=== PATIENT | male | born 1955 | race Caucasian/White ===

== ENCOUNTER 2021-04-10 14:04 | Inpatient (IN) | payer MEDICARE, MEDICAID ==
[~2021-04-10] VITALS: Ht 182.9 cm; Wt 95.4 kg
[2021-04-10] MEDS ORDERED: IV NORMAL SALINE 1,000ML 1,000 ML IV ONE (14:30)
[2021-04-10] MEDS ORDERED: ONDANSETRON PF 4 MG/2 ML VIAL. IVP ONE ×2 (14:30→15:45)
--- NOTE | 2021-04-10 14:47 | EKG ---
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
--- NOTE | 2021-04-10 14:51 | RAD ---
INDICATION: Reason: CP / Spl. Instructions: / History: COMPARISON: None. FINDINGS: Frontal views of chest obtained. AICD is identified with 3 leads. Cardiac mediastinal silhouette is mildly prominent. No definite focal airspace consolidation. IMPRESSION: * No focal airspace consolidation. Electronically signed by: Giles Dill MD (04/10/2021 2:48 PM) [id number]
[2021-04-10 14:53] LABS: CALCIUM 8.6 mg/dL (8.5-10.1); GFR 74.5; POTASSIUM 3.8 mmol/L (3.5-5.1)
[2021-04-10 14:55] LABS: BASO % 1 % (0-3); EOS # 0.1 x10^3/uL (0.0-0.7); EOS % 2 % (0-3); HEMATOCRIT 47.3 % (39.0-53.0); HEMOGLOBIN 16.7 g/dL (13.0-17.5); LYMPH # 1.7 x10^3/uL (1.0-4.8); LYMPH % 25 % (24-48); MEAN CORPUSCULAR HEMOGLOBIN 31 pg (25-35); MEAN CORPUSCULAR HGB CONC 35 g/dL (31-37); MEAN CORPUSCULAR VOLUME 87 fL (79-100); MONO # 0.6 x10^3/uL (0.0-1.1); MONO % 8 % (0-9); NEUT # 4.3 x10^3uL (1.8-7.7); NEUT % 64 % (31-73); PLATELET COUNT 190 x10^3/uL (140-400); RED BLOOD COUNT 5.46 x10^6/uL (4.30-5.70); RED CELL DISTRIBUTION WIDTH 13.2 % (11.5-14.5); WHITE BLOOD COUNT 6.7 x10^3/uL (4.0-11.0)
[2021-04-10 14:58] LABS: ALBUMIN 3.6 g/dL (3.4-5.0); ALBUMIN/GLOBULIN RATIO 1.1 (1.0-1.7); TOTAL BILIRUBIN 1.5 mg/dL (0.2-1.0); TOTAL PROTEIN 6.9 g/dL (6.4-8.2)
[2021-04-10] MEDS ORDERED: LISINOPRIL 5 MG TABLET. PO ONE (15:00)
[2021-04-10] MEDS ORDERED: hydrALAZINE 20 MG/ML VIAL. IV ONE (15:00)
[2021-04-10] MEDS ORDERED: LISINOPRIL 10 MG TABLET ONE (15:02)
--- NOTE | 2021-04-10 15:04 | PHYS DOC ---
Past History Additional Past Medical Histor: peripheral neuropathy, PTSD Past Surgical History: Pacemaker, Other Additional Past Surgical Histo: hernia repair Alcohol Use: Rarely General Adult EDM: Chief Complaint: NAUSEA/VOMITING/DIARRHEA HPI: HPI: 65-year-old male presents with nausea, vomiting. The patient has been having intermittent abdominal pain and vomiting for about a month. He started vomiting last night "cannot stop throwing up". The patient is currently homeless and having issues getting his medications. He is supposed to be on Entresto but he does not have any. His blood pressure is elevated in the ER. The patient has a ventricular pacemaker. He denies fever or chills. Review of Systems: Review of Systems: Constitutional: Denies fever or chills Eyes: Denies change in visual acuity HENT: Denies nasal congestion or sore throat Respiratory: Denies cough or shortness of breath Cardiovascular: Denies chest pain or edema GI: Nausea, vomiting. Denies abdominal pain, bloody stools or diarrhea : Denies dysuria Musculoskeletal: Denies back pain or joint pain Integument: Denies rash Neurologic: Denies headache, focal weakness or sensory changes Endocrine: Denies polyuria or polydipsia Lymphatic: Denies swollen glands Psychiatric: Denies depression or anxiety Current Medications: Current Meds: Current Medications Medications (Trade) Dose Ordered Sig/Francisco Start Time Stop Time Status Last Admin Dose Admin Hydralazine HCl (Apresoline) 10 mg 1X ONCE 04/10/21 15:00 04/10/21 15:01 UNV Lisinopril (Prinivil) 10 mg 1X ONCE 04/10/21 15:00 04/10/21 15:01 UNV Ondansetron HCl (Zofran) 4 mg 1X ONCE 04/10/21 14:30 04/10/21 14:35 DC 04/10/21 14:44 4 MG Sodium Chloride 1,000 ml @ 1,000 mls/hr 1X ONCE 04/10/21 14:30 04/10/21 15:29 04/10/21 14:44 1,000 MLS/HR Allergies: Allergies: Allergies Coded Allergies Type Severity Reaction Last Updated Verified No Known Drug Allergies 04/10/21 No Physical Exam: PE: Constitutional: Well developed, well nourished, no acute distress, non-toxic appearance. [] HENT: Normocephalic, atraumatic, bilateral external ears normal, oropharynx moist, no oral exudates, nose normal. [] Eyes: PERRLA, EOMI, conjunctiva normal, no discharge. [] Neck: Normal range of motion, no tenderness, supple, no stridor. [] Cardiovascular: Heart rate 71, regular rhythm, no murmur [] Lungs & Thorax: Bilateral breath sounds clear to auscultation [] Abdomen: Bowel sounds normal, soft, no tenderness, no masses, no pulsatile masses. [] Skin: Warm, dry, no erythema, no rash. [] Back: No tenderness, no CVA tenderness. [] Extremities: No tenderness, no cyanosis, no clubbing, ROM intact, no edema. [] Neurologic: Alert and oriented X 3, normal motor function, normal sensory function, no focal deficits noted. [] Psychologic: Affect normal, judgement normal, mood normal. [] Current Patient Data: Labs: Laboratory Tests Test 04/10/21 14:30 Glucose (Fingerstick) 176 mg/dL (70-99) H Vital Signs: Vital Signs Date Time Temp Pulse Resp B/P (MAP) Pulse Ox O2 Delivery O2 Flow Rate FiO2 04/10/21 14:19 71 15 229/132 97 EKG: EKG: Paced rhythm, rate 71, rightward axis, no ST elevation or depression. [] Radiology/Procedures: Radiology/Procedures: [] Heart Score: C/O Chest Pain: No Risk Factors: Risk Factors: DM, Current or recent (<one month) smoker, HTN, HLP, family history of CAD, obesity. Risk Scores: Score 0 - 3: 2.5% MACE over next 6 weeks - Discharge Home Score 4 - 6: 20.3% MACE over next 6 weeks - Admit for Clinical Observation Score 7 - 10: 72.7% MACE over next 6 weeks - Early Invasive Strategies Course & Med Decision Making: Course & Med Decision Making Pertinent Labs and Imaging studies reviewed. (See chart for details) The patient's blood pressure is quite high. I have given him Lisinopril, hydralazine and clonidine. He was given fluids and zofran. No further vomiting in the ED. His labs are remarkable for elevated BNP and Cr 1.5. I will admit him to the hospital for hypertensive urgency. I spoke with Dr. Bustillo and he has accepted the patient for admission. [] Dragangel Disclaimer: Dragon Disclaimer: This electronic medical record was generated, in whole or in part, using a voice recognition dictation system. Departure Departure: Impression: Primary Impression: Hypertension Disposition: ADMITTED INPATIENT Admitting Physician: Devendra Bustillo Condition: STABLE Referrals: RADHA COOK DO (PCP) ALYSSA MENDOZA DO Apr 10, 2021 15:04
[2021-04-10] MEDS ORDERED: cloNIDine HCL 0.1 MG TABLET PO ONE (15:30)
[2021-04-10] MEDS ORDERED: LISINOPRIL 10 MG TABLET PO ONE (15:30)
[2021-04-10] MEDS ORDERED: diphenhydrAMINE 50 MG/ML VIAL IVP ONE (17:00)
[2021-04-10] MEDS ORDERED: METOCLOPRAMIDE HCL 10 MG/2 ML VIAL. IVP ONE (17:00)
[2021-04-10] MEDS ORDERED: ACETAMINOPHEN 325 MG TABLET PO PRN (17:45)
[2021-04-10] MEDS ORDERED: ONDANSETRON PF 4 MG/2 ML VIAL. IVP PRN (17:45)
[2021-04-10 17:53] VITALS: BP 171/105
[2021-04-10 19:00] VITALS: BP 159/78
[2021-04-10 20:00] VITALS: BP 162/72
[2021-04-10 20:53] VITALS: BP 145/72
[2021-04-10 23:00] VITALS: BP 139/72
[2021-04-10 23:58] VITALS: BP 144/67
[2021-04-11] VITALS (18 sets, daily range): BP systolic 117–151; BP diastolic 61–89
[2021-04-11] MEDS ORDERED: LISINOPRIL 20 MG TABLET PO SCH (09:00)
[2021-04-11] MEDS: cloNIDine HCL 0.2 MG TABLET PO SCH ×3 (09:19→20:32)
[2021-04-11] MEDS ORDERED: GABA-586 PO (10:27)
[2021-04-11] MEDS ORDERED: SACU1TAB4 PO (12:23)
[2021-04-11] MEDS ORDERED: DULO60CA6 PO (12:23)
[2021-04-11] MEDS ORDERED: FURO-68 PO (12:23)
[2021-04-11] MEDS ORDERED: ATOR40TA59 PO (12:23)
[2021-04-11] MEDS ORDERED: FUROSEMIDE 40 MG TABLET PO PRN (16:30)
--- NOTE | 2021-04-11 18:53 | HP ---
ADMIT DATE: 04/10/2021 HISTORY OF PRESENT ILLNESS: The patient is a 65-year-old male patient who presented to the Emergency Room with a complaint of intermittent abdominal pain and vomiting for about a month. He started vomiting the night before. Stated he cannot stop throwing up. The patient is currently homeless and having issues getting his medication, he is fuzzy, and he is supposed to be on Entresto, but he does not have any. His blood pressure is elevated in the Emergency Room, and apparently he has had a permanent pacemaker. He was extensively investigated and apparently was found to be extremely hypertensive like when he arrived, his blood pressure was 229/132. He was actually treated with lisinopril, clonidine, and the plan was for him to be admitted to start on nicardipine drip, but he responded to oral antihypertensive medication. The patient himself does not know exactly his medication because he was very confused. Eventually, he remembered that he is getting his medication from [place] and it transpired that he was on Entresto 97/103 mg that was started by his slide maker at [facility]. The patient denied any chest pain or shortness of breath. PAST MEDICAL HISTORY: Significant for hypertension, hyperlipidemia, type 2 diabetes mellitus and severe diabetic peripheral neuropathy. PAST SURGICAL HISTORY: Significant for permanent pacemaker placement. ALLERGIES: He has no known drug allergies. MEDICATIONS: He was on atorvastatin calcium 40 mg at bedtime; Entresto 97/103 mg tablet twice a day; gabapentin 300 mg 3 times a day; duloxetine 60 mg, takes 2 capsules once a day; and furosemide 40 mg daily. FAMILY HISTORY: He has one older brother, still alive. His younger brother because of alcoholism. Both parents are . SOCIAL HISTORY: He is , has only one son. He used to smoke cigarettes and quit smoking 3 years ago. He switched to vaping. He used to also drink heavily, but now drinks alcohol occasionally. He does smoke marijuana for enjoyment and also for his severe pain in his legs. REVIEW OF SYSTEMS: The patient denied any blurring of vision, cataracts, glaucoma or macular degeneration. Denied any earache, tinnitus or sensorineural deafness. Denied any nosebleed, stuffy nose or postnasal drip. Denied any sore throat, sore tongue, toothache, hoarseness of voice or difficulty swallowing. He did complain of nausea and vomiting. Denied any diarrhea or constipation. Denied any hematemesis, melena or hematochezia. Denied any dysuria, frequency or hematuria. Denied any chest pain, but did complain of shortness of breath on exertion. PHYSICAL EXAMINATION: GENERAL: On arrival to the Emergency Room, the patient looked well and was clearly in no apparent respiratory distress. There was no pallor, jaundice, cyanosis or thyromegaly. No jugular venous distention. No limb edema. VITAL SIGNS: His heart rate was 71, blood pressure was 129/137. His temperature was 98.3, and respiratory rate was 15 and oxygen saturation was 97% on room air. HEAD, EYES, EARS, NOSE, AND THROAT: Normocephalic, atraumatic. NECK: Supple. HEART: Showed normal first and second heart sounds. No gallop, rub or murmur. CHEST: Clear to auscultation, no crepitation or rhonchi. ABDOMEN: Distended, soft, nontender. NEUROLOGIC: He was awake, alert, oriented x 3. There was no obvious motor and sensory dysfunction. His affect, judgment and mood were normal. His EKG showed that he was in sinus rhythm at a rate of 71 beats per minute with rightward axis, no ST segment elevation or depression. He has had a chest x-ray, which showed that the patient has AICD identified with 3 leads. He has cardiac and mediastinal silhouette, mildly prominent. No definite focal airspace consolidation. LABORATORY DATA: His lab work showed that his white cell count was 6700, hemoglobin 16.7, hematocrit 27, MCV 87 and platelet count of 190,000. His chemistry showed a serum sodium 142, potassium 3.8, chloride 105, bicarbonate 26, anion gap of 11, BUN 15, creatinine 1, estimated GFR was 74 mL per minute. His glucose 174, calcium was 8.6. Total bilirubin 1.6. AST, ALT, alkaline phosphatase were normal. Total protein was 6.9. Albumin was 3.6. He has 2 sets of cardiac enzymes that ruled out acute myocardial infarction. His coronavirus by PCR was negative. ASSESSMENT AND PLAN: In summary, this is a 65-year-old male patient who was admitted with hypertensive urgency. He was treated with lisinopril, clonidine and actually was admitted to ICU as he might require a Cardene drip, transpired other medical problems include probably nonischemic cardiomyopathy for which he has automatic implantable cardioverter defibrillator and he was on Entresto. According to the patient, he was actually on the list for a heart transplant. He has hyperlipidemia and obviously congestive heart failure, most likely chronic systolic congestive heart failure for which he is also on furosemide and surprisingly, he is not on any medication for his diabetes. We will obviously monitor his glucose before meals and bedtime. If necessary, we can start him on low dose sliding scale insulin. VICKY/MAYITO/TIA DR: Tejas TID: [id number]
[2021-04-11] MEDS: GABAPENTIN 300 MG CAPSULE. PO SCH (20:32)
--- NOTE | 2021-04-12 00:37 | PN ---
DATE: 04/11/2021 SUBJECTIVE: The patient is resting, slightly propped up in bed, in no apparent respiratory distress. He continued to have some nausea, but no vomiting. It transpired that he is using marijuana and he is also diabetic, making the possibility of diabetic gastroparesis versus cyclic vomiting syndrome a possibility or maybe even both of them; however, he denied any chest pain. Did complain of some shortness of breath. When I saw him this afternoon, he looked well and was clearly in no apparent respiratory distress. No pallor, jaundice, cyanosis. No lymphadenopathy, no thyromegaly, no jugular venous distention. No limb edema. PHYSICAL EXAMINATION: VITAL SIGNS: His heart rate was 70, blood pressure was 117/74, temperature was 98.2, respiratory rate was 12 and oxygen saturation was 98%. HEAD, EYES, EARS, NOSE AND THROAT: He is normocephalic, atraumatic. NECK: Supple. HEART: Showed normal first and second sounds. No gallop or murmur. CHEST: Clear to auscultation. No crepitation or rhonchi. ABDOMEN: Distended, soft, nontender. NEUROLOGIC: He was grossly intact. ASSESSMENT: 1. Malignant hypertension versus hypertensive urgency, responding very well to lisinopril and clonidine; however, he is on high-dose Entresto that he has not been taking for a while. 2. Nonischemic cardiomyopathy, for which he has automatic implantable cardioverter-defibrillator. 3. Hypertension. 4. Severe peripheral neuropathy, likely diabetic peripheral neuropathy. 5. Hyperlipidemia. PLAN: My plan is to reconcile all his medications. He is back now on his atorvastatin 40 mg daily, gabapentin 300 mg 3 times a day, duloxetine 60 mg twice a day and furosemide 40 mg daily. He is on high-dose Entresto; however, he was started on lisinopril and I will consult the Cardiology Team as they have access to his records from [facility]. The decision is to put him back on Entresto. We will switch him back tomorrow and he can be discharged home. Apparently, he is already on the list for cardiac transplant, although he himself has said that he does not really feel that is the right way to go. GLADYS DR: Tejas TID: [id number]
[2021-04-12 03:51] VITALS: BP 163/95
[2021-04-12] MEDS: cloNIDine HCL 0.2 MG TABLET PO SCH (05:31)
[2021-04-12 07:19] LABS: ALBUMIN 2.9 g/dL (3.4-5.0); ALBUMIN/GLOBULIN RATIO 0.9 (1.0-1.7); CREATININE 1.5 mg/dL (0.7-1.3); GFR 46.7; POTASSIUM 3.7 mmol/L (3.5-5.1); TOTAL BILIRUBIN 1.1 mg/dL (0.2-1.0)
--- NOTE | 2021-04-12 08:50 | PDOC2 ---
CARDIAC CONSULT DATE OF CONSULT DOS: DATE: 04/12/21 TIME: 08:43 REASON FOR CONSULT Reason for Consult NICM, malignant hypertension REFERRING PHYSICIAN Referring Physician Dr. Bustillo SOURCE Source: Chart review, Patient HPI History of Present Illness This is a 65 yo male who presented secondary to abdominal pain and vomiting. Patient reports intermittent vomiting for the last month. Blood pressure also significantly elevated upon arrival, which prompted this consult. Patient has been homeless for the last several months. Was living out in [facility] near [place], [place]. Did not have transportation for appointments and to get his medications filled. Recently moved to [place] to living in basement of his son's home. Has ran out of some of his medications, but is currently taking others. 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 Previously followed at . Is currently on Entresto. Also history of permanent AFIB and in on Xarelto for stroke prophylaxis, although he ran out recently. PAST MEDICAL HISTORY Cardiovascular: AFIB, CHF, HTN, hyperipidemia, Other (NICM) CENTRAL NERVOUS SYSTEM: Periperal neuropathy GI: GERD, Peptic Ulcer disease Hepatobiliary: Hep A/B/C (B) Psych: Anxiety, Depression Endocrine: Diabetes PAST SURGICAL HISTORY Past Surgical History: Pacemaker (AICD) FAMILY HISTORY Family History: Hypertension SOCIAL HISTORY Smoke: Quit (quit tobacco 3 years ago. Has been vaping) ALCOHOL: occassional Drugs: Marijuana Lives: with Family CURRENT MEDICATIONS Current Medications Current Medications Sodium Chloride 1,000 ml @ 1,000 mls/hr 1X ONCE IV Last administered on 04/10/21at 14:44; Start 04/10/21 at 14:30; Stop 04/10/21 at 15:29; Status DC Ondansetron HCl (Zofran) 4 mg 1X ONCE IVP Last administered on 04/10/21at 14:44; Start 04/10/21 at 14:30; Stop 04/10/21 at 14:35; Status DC Lisinopril (Prinivil) 10 mg 1X ONCE PO Last administered on 04/10/21at 15:03; Start 04/10/21 at 15:00; Stop 04/10/21 at 15:18; Status DC Hydralazine HCl (Apresoline) 10 mg 1X ONCE IV Last administered on 04/10/21at 15:05; Start 04/10/21 at 15:00; Stop 04/10/21 at 15:18; Status DC Lisinopril (Prinivil) 10 mg STK-MED ONCE .ROUTE ; Start 04/10/21 at 15:02; Stop 04/10/21 at 15:03; Status DC Lisinopril (Prinivil) 10 mg 1X ONCE PO Last administered on 04/10/21at 15:03; Start 04/10/21 at 15:30; Stop 04/10/21 at 15:31; Status DC Clonidine HCl (Catapres) 0.2 mg 1X ONCE PO Last administered on 04/10/21at 15:43; Start 04/10/21 at 15:30; Stop 04/10/21 at 15:33; Status DC Ondansetron HCl (Zofran) 4 mg 1X ONCE IVP Last administered on 04/10/21at 15:42; Start 04/10/21 at 15:45; Stop 04/10/21 at 15:54; Status DC Nicardipine HCl 50 mg/Sodium Chloride 250 ml @ 25 mls/hr CONT PRN IV SEE I/O RECORD; Start 04/10/21 at 16:15; Stop 04/11/21 at 09:17; Status DC Diphenhydramine HCl (Benadryl) 25 mg 1X ONCE IVP Last administered on 04/10/21at 17:07; Start 04/10/21 at 17:00; Stop 04/10/21 at 17:20; Status DC Metoclopramide HCl (Reglan Vial) 10 mg 1X ONCE IVP Last administered on 04/10/21at 17:07; Start 04/10/21 at 17:00; Stop 04/10/21 at 17:20; Status DC Ondansetron HCl (Zofran) 4 mg PRN Q4HRS PRN IVP NAUSEA/VOMITING; Start 04/10/21 at 17:45; Stop 04/11/21 at 17:44; Status DC Acetaminophen (Tylenol) 650 mg PRN Q4HRS PRN PO FEVER > 100.3'F; Start 04/10/21 at 17:45; Stop 04/11/21 at 17:44; Status DC Lisinopril (Prinivil) 20 mg DAILY PO Last administered on 04/11/21at 09:19; Start 04/11/21 at 09:00 Clonidine HCl (Catapres) 0.2 mg Q8HRS PO Last administered on 04/12/21at 05:31; Start 04/11/21 at 09:00 Duloxetine HCl (Cymbalta) 120 mg DAILY PO ; Start 04/12/21 at 09:00 Furosemide (Lasix) 40 mg PRN DAILY PRN PO SHORTNESS OF BREATH; Start 04/11/21 at 16:30 Gabapentin (Neurontin) 300 mg TID PO Last administered on 04/11/21at 20:32; Start 04/11/21 at 21:00 Atorvastatin Calcium (Lipitor) 40 mg DAILY PO ; Start 04/12/21 at 09:00 Active Scripts Active Reported Lasix (Furosemide) 40 Mg Tablet 1 Tab PO DAILY PRN 30 Days Entresto 97 mg-103 mg Tablet (Sacubitril/Valsartan) 1 Each Tablet 1 Each PO BID Cymbalta (Duloxetine Hcl) 60 Mg Capsule.dr 2 Cap PO DAILY Atorvastatin Calcium 40 Mg Tablet 1 Tab PO DAILY Gabapentin (Gabapentin) 300 Mg Capsule 300 Mg PO TID ALLERGIES Allergies: Coded Allergies: No Known Drug Allergies (Unverified , 04/10/21) ROS Review of Systems 14 point ROS conducted with pertinent positives noted above in HPI PHYSICAL EXAM General: Alert, Oriented X3, Cooperative HEENT: Atraumatic, Mucous membr. moist/pink Lungs: Clear to auscultation, Other (diminished bases) Heart: Other (v-paced with underlying AFIB ) Abdomen: Soft Extremities: No edema, Normal pulses Skin: No breakdown Neuro: Normal speech, Sensation intact Psych/Mental Status: Mental status NL, Mood NL MUSCULOSKELETAL: Osteoarthritic changes both hands VITALS Vital Signs Vital Signs Date Time Temp Pulse Resp B/P (MAP) Pulse Ox O2 Delivery O2 Flow Rate FiO2 04/12/21 05:31 70 163/95 04/12/21 03:51 16 94 Room Air 04/11/21 23:56 98.2 LABS LABS Laboratory Tests Test 04/10/21 14:20 04/10/21 14:30 04/10/21 17:10 04/10/21 19:20 White Blood Count 6.7 x10^3/uL (4.0-11.0) Red Blood Count 5.46 x10^6/uL (4.30-5.70) Hemoglobin 16.7 g/dL (13.0-17.5) Hematocrit 47.3 % (39.0-53.0) Mean Corpuscular Volume 87 fL (79-100) Mean Corpuscular Hemoglobin 31 pg (25-35) Mean Corpuscular Hemoglobin Concent 35 g/dL (31-37) Red Cell Distribution Width 13.2 % (11.5-14.5) Platelet Count 190 x10^3/uL (140-400) Neutrophils (%) (Auto) 64 % (31-73) Lymphocytes (%) (Auto) 25 % (24-48) Monocytes (%) (Auto) 8 % (0-9) Eosinophils (%) (Auto) 2 % (0-3) Basophils (%) (Auto) 1 % (0-3) Neutrophils # (Auto) 4.3 x10^3uL (1.8-7.7) Lymphocytes # (Auto) 1.7 x10^3/uL (1.0-4.8) Monocytes # (Auto) 0.6 x10^3/uL (0.0-1.1) Eosinophils # (Auto) 0.1 x10^3/uL (0.0-0.7) Basophils # (Auto) 0.0 x10^3/uL (0.0-0.2) Sodium Level 142 mmol/L (136-145) Potassium Level 3.8 mmol/L (3.5-5.1) Chloride Level 105 mmol/L (98-107) Carbon Dioxide Level 26 mmol/L (21-32) Anion Gap 11 (6-14) Blood Urea Nitrogen 15 mg/dL (8-26) Creatinine 1.0 mg/dL (0.7-1.3) Estimated GFR (Cockcroft-Gault) 74.5 BUN/Creatinine Ratio 15 (6-20) Glucose Level 174 mg/dL (70-99) Calcium Level 8.6 mg/dL (8.5-10.1) Total Bilirubin 1.5 mg/dL (0.2-1.0) Aspartate Amino Transf (AST/SGOT) 17 U/L (15-37) Alanine Aminotransferase (ALT/SGPT) 19 U/L (16-63) Alkaline Phosphatase 99 U/L (46-116) Troponin I Quantitative < 0.017 ng/mL (0-0.055) Total Protein 6.9 g/dL (6.4-8.2) Albumin 3.6 g/dL (3.4-5.0) Albumin/Globulin Ratio 1.1 (1.0-1.7) Glucose (Fingerstick) 176 mg/dL (70-99) 147 mg/dL (70-99) Coronavirus (COVID-19)(PCR) Negative (NEGATIVE) SARS-CoV-2 Antigen (Rapid) Negative (NEGATIVE) Test 04/10/21 23:00 04/11/21 20:08 04/12/21 06:50 04/12/21 07:32 Troponin I Quantitative < 0.017 ng/mL (0-0.055) Glucose (Fingerstick) 213 mg/dL (70-99) 152 mg/dL (70-99) Sodium Level 140 mmol/L (136-145) Potassium Level 3.7 mmol/L (3.5-5.1) Chloride Level 105 mmol/L (98-107) Carbon Dioxide Level 24 mmol/L (21-32) Anion Gap 11 (6-14) Blood Urea Nitrogen 23 mg/dL (8-26) Creatinine 1.5 mg/dL (0.7-1.3) Estimated GFR (Cockcroft-Gault) 46.7 BUN/Creatinine Ratio 15 (6-20) Glucose Level 133 mg/dL (70-99) Calcium Level 8.0 mg/dL (8.5-10.1) Total Bilirubin 1.1 mg/dL (0.2-1.0) Aspartate Amino Transf (AST/SGOT) 16 U/L (15-37) Alanine Aminotransferase (ALT/SGPT) 10 U/L (16-63) Alkaline Phosphatase 79 U/L (46-116) GH-Xrl-R-Type Natriuretic Peptide 1236 pg/mL (0-124) Total Protein 6.0 g/dL (6.4-8.2) Albumin 2.9 g/dL (3.4-5.0) Albumin/Globulin Ratio 0.9 (1.0-1.7) ECHOCARDIOGRAM Echocardiogram 06/24/20 - 2D + DOPPLER ECHO Interpretation Summary Moderately depressed left ventricular systolic function, estimated ejection fraction is 40%, wall motion abnormalities are present (see diagram) Grade III (severe) left ventricular diastolic dysfunction. Elevated left atrial pressure. The right ventricular size, wall thickness and systolic function are normal. No significant valvular abnormalities. Pulmonary artery pressure could not be calculated by this study due to incomplete TR signal. ASSESSMENT/PLAN Assessment/Plan 1. Abdominal pain, nausea/vomiting; improved 2. Hypertensive urgency; now controlled. Due to missed meds 3. Chronic combined diastolic/systolic CHF; appears compensated 4. 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 previously 10-15% 5. Permanent AFIB; chronic OAC with Xarelto 6. H/o VT; Sotalol initiated 06/15 during inpatient hospitalization, but patient never filled 7. Hyperlipidemia 8. Diabetes, II Recommendations Discontinue lisinopril, clonidine Resume Entresto, Coreg for HF optimization Resume amlodipine Xarelto for stroke prophylaxis Device interrogation Will need to re-establish outpatient cardiology care Supportive care ANJELICA BERKOWITZ APRN Apr 12, 2021 08:50
[2021-04-12] MEDS: GABAPENTIN 300 MG CAPSULE. PO SCH ×3 (09:00→20:42)
[2021-04-12 09:19] VITALS: BP 116/70
[2021-04-12] MEDS: ATORVASTATIN CALCIUM 20 MG TABLET PO SCH (12:32)
[2021-04-12] MEDS: DULoxetine HCL 60 MG CAPSULE.DR PO SCH (12:32)
[2021-04-12 13:33] VITALS: BP 124/67
[2021-04-12] MEDS ORDERED: METOCLOPRAMIDE HCL 10 MG/2 ML VIAL. IVP SCH (15:15)
[2021-04-12 16:57] VITALS: BP 174/99
[2021-04-12] MEDS: CARVEDILOL 12.5 MG TABLET PO SCH (17:25)
[2021-04-12] MEDS: RIVAROXABAN 10 MG TABLET. PO SCH (17:25)
[2021-04-12 20:00] VITALS: BP 155/96
[2021-04-12] MEDS: METOCLOPRAMIDE HCL 10 MG/2 ML VIAL. IVP SCH (20:42)
[2021-04-12] MEDS: SACUBITRIL/VALSARTAN 24/26MG TABLET. PO SCH (20:42)
--- NOTE | 2021-04-13 00:50 | PN ---
SUBJECTIVE: The patient is resting, slightly propped up in bed, awake, alert, continued to complain of nausea and we did start him on Reglan 5 mg before meals and bedtime. He is diabetic and it is highly likely that he has diabetic ketoacidosis. He stated that he started having nausea and vomiting 2 hours after eating his food. He is also using marijuana and it is likely that he also has cyclic vomiting syndrome. He was seen today by the Cardiology team and his lisinopril and clonidine were discontinued. He is now back on Entresto, amlodipine and Coreg. OBJECTIVE: GENERAL: When I examined him, he looked well and was clearly in no apparent respiratory distress. No pallor, jaundice, cyanosis or thyromegaly. No jugular venous distention. No limb edema. VITAL SIGNS: His heart rate was 70, blood pressure was 124/67, his temperature was 98.2, respiratory rate was 18, oxygen saturation was 92% on room air. HEAD, EYES, EARS, NOSE, AND THROAT: Normocephalic, atraumatic. NECK: Supple. HEART: Normal first and second heart sounds, no gallop, rub or murmur. CHEST: Clear to auscultation, no crepitation or rhonchi. ABDOMEN: Distended, soft, nontender. NEUROLOGIC: He was grossly intact. His intake was 1250, output was 400. LABORATORY DATA: His chemistry this morning showed a serum sodium 140, potassium 3.7, chloride 105, bicarbonate 24, anion gap of 11, BUN 23, creatinine 1.5. Estimated GFR was 46 mL per minute. His glucose 133, calcium was 8. Total bilirubin, AST, ALT, alkaline phosphatase were all normal. His beta natriuretic peptide was 1236, total protein 6, albumin 2.9. His serum triglycerides 142. Total cholesterol 185, LDL was 129, VLDL was 28, HDL cholesterol was 28 and the ratio was 6. ASSESSMENT: 1. The patient continued to have some nausea, but no vomiting. The abdominal pain has subsided. 2. Hypertensive urgency, much better controlled. 3. Chronic combined systolic and diastolic congestive heart failure, appears compensated. 4. Nonischemic cardiomyopathy. Status post ENTRY ANALYST-D [employer]. Echo showed left ventricular ejection fraction of 40%, previously was 10-15%. 5. Permanent atrial fibrillation, on chronic anticoagulation. 6. History of V-tach. Sotalol initiated on 06/23 during inpatient [facility] hospitalization, but the patient never filled. 7. Hyperlipidemia. 8. Type 2 diabetes. PLAN: The patient was continued on his Entresto at a lower dose as well as Coreg and amlodipine. Xarelto was continued. His device will be interrogated and hopefully the patient can be discharged home tomorrow. AYANNA DR: Tejas TID: [id number]
[2021-04-13 00:53] VITALS: BP 125/93
[2021-04-13 02:06] LABS: HEMOGLOBIN A1C 6.3 % (4.8-5.6)
[2021-04-13] MEDS ORDERED: ACETAMINOPHEN 325 MG TABLET PO PRN (03:00)
[2021-04-13 05:08] VITALS: BP 165/103
[2021-04-13 06:32] LABS: CALCIUM 7.9 mg/dL (8.5-10.1); CREATININE 1.3 mg/dL (0.7-1.3); GFR 55.1; POTASSIUM 3.4 mmol/L (3.5-5.1)
[2021-04-13] MEDS: METOCLOPRAMIDE HCL 10 MG/2 ML VIAL. IVP SCH ×2 (07:54→11:30)
[2021-04-13] MEDS: CARVEDILOL 12.5 MG TABLET PO SCH ×3 (07:55→17:51)
[2021-04-13] MEDS: SACUBITRIL/VALSARTAN 24/26MG TABLET. PO SCH (07:55)
[2021-04-13] MEDS: amLODIPine BESYLATE 10 MG TABLET PO SCH (07:55)
[2021-04-13] MEDS: GABAPENTIN 300 MG CAPSULE. PO SCH ×3 (07:56→20:49)
[2021-04-13] MEDS: ATORVASTATIN CALCIUM 20 MG TABLET PO SCH (07:56)
[2021-04-13] MEDS: DULoxetine HCL 60 MG CAPSULE.DR PO SCH (07:56)
[2021-04-13] MEDS ORDERED: POTASSIUM CHLORIDE 20 MEQ TABLET.ER. PO ONE (08:00)
--- NOTE | 2021-04-13 08:00 | PDOC ---
ANJELICA BERKOWITZ COLTON 04/13/21 0800: CARDIO Progress Notes Date & Time Date of Service DATE: 04/13/21 TIME: 07:56 Time of Evaluation 07:56 Subjective Notes still having some nausea. no vomiting. No dizziness, diaphoresis, chest pain, or SOA. Vitals Vitals Vital Signs Date Time Temp Pulse Resp B/P (MAP) Pulse Ox O2 Delivery O2 Flow Rate FiO2 04/13/21 05:08 98.4 74 16 165/103 (123) 96 04/12/21 20:00 Room Air Weight Weight [ ] Input and Output I.O. Intake and Output 04/13/21 07:00 Intake Total 1768 ml Output Total 700 ml Balance 1068 ml Intake Oral 1768 ml Output Urine Total 700 ml # Bowel Movements 1 Laboratory Labs Laboratory Tests Test 04/11/21 20:08 04/12/21 06:50 04/12/21 07:32 04/12/21 11:38 Glucose (Fingerstick) 213 mg/dL (70-99) 152 mg/dL (70-99) 147 mg/dL (70-99) Sodium Level 140 mmol/L (136-145) Potassium Level 3.7 mmol/L (3.5-5.1) Chloride Level 105 mmol/L (98-107) Carbon Dioxide Level 24 mmol/L (21-32) Anion Gap 11 (6-14) Blood Urea Nitrogen 23 mg/dL (8-26) Creatinine 1.5 mg/dL (0.7-1.3) Estimated GFR (Cockcroft-Gault) 46.7 BUN/Creatinine Ratio 15 (6-20) Glucose Level 133 mg/dL (70-99) Hemoglobin A1c 6.3 % (4.8-5.6) Calcium Level 8.0 mg/dL (8.5-10.1) Total Bilirubin 1.1 mg/dL (0.2-1.0) Aspartate Amino Transf (AST/SGOT) 16 U/L (15-37) Alanine Aminotransferase (ALT/SGPT) 10 U/L (16-63) Alkaline Phosphatase 79 U/L (46-116) KW-Skh-Y-Type Natriuretic Peptide 1236 pg/mL (0-124) Total Protein 6.0 g/dL (6.4-8.2) Albumin 2.9 g/dL (3.4-5.0) Albumin/Globulin Ratio 0.9 (1.0-1.7) Triglycerides Level 142 mg/dL (0-150) Cholesterol Level 185 mg/dL (0-200) LDL Cholesterol, Calculated 129 mg/dL (0-100) VLDL Cholesterol, Calculated 28 mg/dL (0-40) Non-HDL Cholesterol Calculated 157 mg/dL (0-129) HDL Cholesterol 28 mg/dL (40-60) Cholesterol/HDL Ratio 6.0 Test 04/12/21 16:41 04/13/21 05:51 04/13/21 07:45 Glucose (Fingerstick) 151 mg/dL (70-99) 139 mg/dL (70-99) Sodium Level 139 mmol/L (136-145) Potassium Level 3.4 mmol/L (3.5-5.1) Chloride Level 105 mmol/L (98-107) Carbon Dioxide Level 24 mmol/L (21-32) Anion Gap 10 (6-14) Blood Urea Nitrogen 24 mg/dL (8-26) Creatinine 1.3 mg/dL (0.7-1.3) Estimated GFR (Cockcroft-Gault) 55.1 Glucose Level 129 mg/dL (70-99) Calcium Level 7.9 mg/dL (8.5-10.1) Physical Exams HEENT: Neck Supple W Full Motion Chest: Symmetric Lungs: Other (diminished bases) Heart: other (v-paced with underlying AFIB) Abdomen: Soft N/T Extremities: No Edema Neurology: alert, oriented, follow commands Assessment Assessment 1. Abdominal pain, nausea/vomiting; improved 2. Hypertensive urgency; Due to missed meds 3. Chronic combined diastolic/systolic CHF; appears compensated 4. NICM; s/p GENETIC ENGINEER-D ([employer]) .Echo 06/15 with LVEF 40%. previously 10-15% 5. Permanent AFIB; chronic OAC with Xarelto. rate controlled 6. H/o VT; Sotalol initiated 06/15 during inpatient hospitalization, but patient never filled. Device interrogation shows one episode of 8-second VT since 06/25/2020 7. Hyperlipidemia 8. Diabetes, II Recommendations Continue Entresto, Coreg for HF optimization. will uptitrate Xarelto for stroke prophylaxis Will d/w primary ad operations coordinator regarding need for antiarrhythmic therapy Patient would like to establish cardiology care with [facility]. Will scheduled follow up appointment. Supportive care RACHEAL ALAS MD 04/14/21 1109: CARDIO Progress Notes Plan Plan Late entry for 04/13/21 Pt. seen and examined. Agree with above BULB TESTER note. Supportive care. ANJELICA BERKOWITZ APRN Apr 13, 2021 08:00 RACHEAL ALAS MD Apr 14, 2021 11:09
[2021-04-13] MEDS: SACUBITRIL/VALSARTAN 49/51MG TABLET. PO SCH ×2 (09:00→20:50)
[2021-04-13] MEDS ORDERED: METOCLOPRAMIDE HCL 10 MG/2 ML VIAL. ONE (12:24)
[2021-04-13 12:57] VITALS: BP 145/85
[2021-04-13] MEDS: RIVAROXABAN 10 MG TABLET. PO SCH (17:50)
[2021-04-13] MEDS: METOCLOPRAMIDE 10 MG TABLET PO SCH ×2 (17:51→20:50)
[2021-04-13 18:11] VITALS: BP 125/68
[2021-04-13 19:35] VITALS: BP 141/85
[2021-04-13 22:35] VITALS: BP 147/93
--- NOTE | 2021-04-13 23:17 | PN ---
DATE: 04/13/2021 ATTENDING PHYSICIAN: Dr. Bustillo SUBJECTIVE: Breathing better, still weak. OBJECTIVE FINDINGS: VITAL SIGNS: Blood pressure is still fluctuating between 130 and 166 mmHg systolic. Heart rate is controlled. He is breathing better. HEENT: Head is without trauma. Pupils are reactive. Sclerae nonicteric. Oropharynx clear. NECK: Supple, no bruits. LUNGS: Good breath sounds. Minimal crackles at bases. CARDIOVASCULAR: Showed distant heart tones. No obvious gallops. Peripheral pulses are palpable and full. ABDOMEN: Soft, obese, protuberant. Normoactive bowel sounds. No guarding. EXTREMITIES: Show trace edema. NEUROLOGIC FINDINGS: Focally intact. SKIN: Warm and dry. X-RAYS AND LAB WORK: Reviewed. ASSESSMENT: 1. A 65-year-old gentleman with hypertensive urgency. 2. Noncompliance of meds. He had been recently kicked out of his apartment in the process of moving to . 3. Ischemic cardiomyopathy. 4. Permanent pacemaker. 5. He is very fortunate that his most recent echo showed an improvement of ejection fraction from 10% a year ago to 40%. 6. Hypertensive urgency. PLAN: 1. Tyrell per Cardiology. 2. Continue medications as ordered. 3. Tentative discharge plans for tomorrow. 4. I will write prescription. He does have a plan. We wll make sure that he gets in to see his primary care doctor. He has been going to see a ball point splitter at [facility]. FARSHAD DR: Dixie TID: [id number]
[2021-04-14 05:15] VITALS: BP 173/107
--- NOTE | 2021-04-14 08:28 | PDOC ---
CARDIO Progress Notes Date & Time Date of Service DATE: 04/14/21 TIME: 08:25 Time of Evaluation 08:25 Subjective Notes No chest pain, SOA. Nausea improved Vitals Vitals Vital Signs Date Time Temp Pulse Resp B/P (MAP) Pulse Ox O2 Delivery O2 Flow Rate FiO2 04/14/21 05:15 97.6 70 14 173/107 (129) 95 Room Air Weight Weight [ ] Input and Output I.O. Intake and Output 04/14/21 07:00 Intake Total 1200 ml Output Total 1400 ml Balance -200 ml Intake Oral 1200 ml Output Urine Total 1400 ml Laboratory Labs Laboratory Tests Test 04/12/21 11:38 04/12/21 16:41 04/13/21 05:51 04/13/21 07:45 Glucose (Fingerstick) 147 mg/dL (70-99) 151 mg/dL (70-99) 139 mg/dL (70-99) Sodium Level 139 mmol/L (136-145) Potassium Level 3.4 mmol/L (3.5-5.1) Chloride Level 105 mmol/L (98-107) Carbon Dioxide Level 24 mmol/L (21-32) Anion Gap 10 (6-14) Blood Urea Nitrogen 24 mg/dL (8-26) Creatinine 1.3 mg/dL (0.7-1.3) Estimated GFR (Cockcroft-Gault) 55.1 Glucose Level 129 mg/dL (70-99) Calcium Level 7.9 mg/dL (8.5-10.1) Magnesium Level 2.1 mg/dL (1.8-2.4) Test 04/13/21 20:08 04/14/21 08:20 Glucose (Fingerstick) 154 mg/dL (70-99) 135 mg/dL (70-99) Physical Exams HEENT: Neck Supple W Full Motion Chest: Symmetric Lungs: Other (diminished bases) Heart: other (v-paced with underlying AFIB) Abdomen: Soft N/T Extremities: No Edema Neurology: alert, oriented, follow commands Assessment Assessment 1. Abdominal pain, nausea/vomiting; improved 2. Hypertensive urgency; Due to missed meds 3. Chronic combined diastolic/systolic CHF; appears compensated 4. 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 previously 10-15% 5. Permanent AFIB; chronic OAC with Xarelto. rate controlled 6. H/o VT; Sotalol initiated 06/15 during inpatient [facility] hospitalization, but patient never filled. Device interrogation shows one episode of 8-second VT since 06/25/2020 7. Hyperlipidemia 8. Diabetes, II Recommendations Continue Melecio Trevino for HF optimization Xarelto for stroke prophylaxis Will hold off on antiarrhythmic therapy at this time as patient has had one single very brief episode of VT since 06/25/20. Will monitor for arrhythmias with routine device checks on an outpatient basis Supportive care Follow up in our office with Dr. Enriquez as scheduled. ANJELICA BERKOWITZ APRN Apr 14, 2021 08:28
[2021-04-14] MEDS: METOCLOPRAMIDE 10 MG TABLET PO SCH (09:45)
[2021-04-14] MEDS: DULoxetine HCL 60 MG CAPSULE.DR PO SCH (09:45)
[2021-04-14] MEDS: ATORVASTATIN CALCIUM 20 MG TABLET PO SCH (09:45)
[2021-04-14] MEDS: CARVEDILOL 12.5 MG TABLET PO SCH (09:45)
[2021-04-14] MEDS: GABAPENTIN 300 MG CAPSULE. PO SCH (09:46)
[2021-04-14] MEDS: amLODIPine BESYLATE 10 MG TABLET PO SCH (09:46)
[2021-04-14 09:50] VITALS: BP 173/107
[2021-04-14] MEDS: SACUBITRIL/VALSARTAN 49/51MG TABLET. PO SCH (09:50)
--- NOTE | 2021-04-14 10:52 | DS ---
DATE OF DISCHARGE: 04/14/2021 ATTENDING PHYSICIAN: Devendra Bustillo MD FINAL DISCHARGE DIAGNOSES: 1. Hypertensive urgency, resolved. 2. Noncompliance of meds. 3. Ischemic cardiomyopathy. 4. Permanent pacemaker. 5. History of substance abuse in the past. 6. Essential hypertension. 7. Significant social stressors. HISTORY AND PHYSICAL: The patient is a 65-year-old gentleman with a known history of ischemic cardiomyopathy. He has been thrown out of his house. He has a permanent pacemaker. He has not been compliant with his meds. He was admitted with hypertensive emergency and symptomatic dyspnea. PHYSICAL EXAMINATION: Please see the dictated note. PERTINENT LABORATORY AND X-RAY STUDIES: Hemoglobin 16.7 g/dL with a white count of 6700. Chemistry panel: Creatinine 1.3 mg percent. Nonfasting blood sugar 135. Cardiac enzymes were unremarkable. COURSE IN HOSPITAL: The patient was seen, started back on his meds, started back on anticoagulation. Cardiology consultation was obtained. They recommended followup visit as an outpatient. He did well with restarting of his Entresto dose increased to 49/51 b.i.d. On the fourth hospital day, he was doing better. Vital signs were stable. Blood pressure was improved down to 147/93, pulse is regular. He was afebrile. He was ready for discharge. I wrote scripts for all his meds including refills. He will continue his Entresto 49/51 b.i.d., Coreg 25 mg b.i.d., Lasix 40 mg p.o. daily, Xarelto 20 mg daily, Cymbalta 40 mg daily, Neurontin, Lipitor, and amlodipine. 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 He was discharged from our hospital in stable condition with explicit drug and followup care. Total discharge time spent was [address]: Dixie TID: [id number]
== END 2021-04-14 11:55 | disposition home or self-care (01) | DRG 305 ==
LOC: ER 14:04 → ICU 17:39
PROVIDERS: ADMIT Internal Medicine; ATTEND Internal Medicine
DX: I16.1 Hypertensive emergency (principal); I50.42 Chronic combined systolic (congestive) and diastolic (congestive) heart failure; I42.8 Other cardiomyopathies; I48.21 Permanent atrial fibrillation; F43.10 Post-traumatic stress disorder, unspecified; E11.42 Type 2 diabetes mellitus with diabetic polyneuropathy; E78.5 Hyperlipidemia, unspecified; I11.0 Hypertensive heart disease with heart failure; F41.9 Anxiety disorder, unspecified; F32.9 Major depressive disorder, single episode, unspecified; K21.9 Gastro-esophageal reflux disease without esophagitis; I25.5 Ischemic cardiomyopathy; Z20.822 Contact with and (suspected) exposure to COVID-19; F12.90 Cannabis use, unspecified, uncomplicated; Z95.0 Presence of cardiac pacemaker; Z91.14 Patient's other noncompliance with medication regimen; Z87.891 Personal history of nicotine dependence; Z87.11 Personal history of peptic ulcer disease; Z82.49 Family history of ischemic heart disease and other diseases of the circulatory system; Z79.01 Long term (current) use of anticoagulants; Z59.0 Homelessness
CPT/HCPCS: 36415; 71045; 80048; 80053; 80061; 82947; 83036; 83735; 83880; 84484; 85025; 87426; 93005; 96361; 96374; 96375; 96376; J0360; J1200; J2405; J2765; U0003; 99285-25; J7030